=== PATIENT | male | born 1950 | race Caucasian/White ===

== ENCOUNTER 2020-09-23 07:41 | Emergency (ER) | payer MEDICARE, SELFPAY ==
[2020-09-23] VITALS (20 sets, daily range): BP systolic 117–134; BP diastolic 69–82; PULSE 61–85; RESP 14–19; TEMP 36.3; O2SAT 98–100
--- NOTE | 2020-09-23 08:12 | ECG_ITS ---
Measurements Intervals [place] Rate: 63 P: 78 MD: 147 QRS: 85 QRSD: 127 T: 66 QT: 451 QTc: 463 Interpretive Statements SINUS RHYTHM POSSIBLE LEFT ATRIAL ENLARGEMENT INCOMPLETE RIGHT BUNDLE BRANCH BLOCK BASELINE ARTIFACT- II, III, AVR, AVF, V1, V3-V6 BORDERLINE ECG Electronically Signed On 09-23-2020 9:17:19 CDT by Hipolito Gan D.O.
[2020-09-23] MEDS: FAMOTIDINE 20 MG/2 ML VIAL IV PUSH (08:28)
[2020-09-23] MEDS: SODIUM CHLORIDE 0.9% IV 1,000 ML 150 ML IV CONT (08:28)
[2020-09-23] MEDS: ONDANSETRON INJ 4 MG/2 ML VIAL IV PUSH (08:28)
[2020-09-23 08:39] LABS: Hematocrit 39.1 % (42.0-52.0); Hemoglobin 13.6 g/dL (14.0-18.0); Immature Granulocyte Absolute 0.02 K/mm3 (0.00-0.031); Immature Granulocyte Percent A 0.3 % (0-0.5); Lymphocytes Absolute Auto 0.72 K/mm3 (0.9-3.2); Lymphocytes Percent Auto 9.8 % (18.3-44.2); Mean Corpuscular HGB Conc 34.8 g/dl (32-36); Mean Corpuscular Hemoglobin 32.2 pg (26-34); Mean Corpuscular Volume 92.7 fl (80-100); Mean Platelet Volume 11.9 fl (7.4-10.4); Monocytes Absolute Auto 0.3 K/mm3 (0.1-0.6); Monocytes Percent Auto 4.6 % (2.6-8.5); Neutrophils Absolute Auto 6.3 K/mm3 (1.3-6.7); Neutrophils Percent Auto 85.3 % (45.5-73.1); Platelet Count Result 130 k/mm3 (150-375); Red Blood Count 4.22 M/mm3 (4.6-6.20); Red Cell Distribution Width 13.2 % (11.5-14.5); White Blood Count 7.4 K/mm3 (4.5-10.0)
[2020-09-23 08:42] LABS: Alanine Aminotransferase 23 U/L (4-50); Albumin Level 4.5 g/dL (3.5-5.1); Alkaline Phosphatase 63 U/L (38-126); Anion Gap 11 mmol/L (8-16); Aspartate Amino Transferase 32 U/L (17-59); Bilirubin,Total 1.3 mg/dL (0.2-1.3); Blood Urea Nitrogen 11 mg/dL (9-20); Calcium 9.7 mg/dL (8.4-10.2); Carbon Dioxide 22 mmol/L (22-30); Chloride 99 mmol/L (98-107); Estimated CRCL calculation 75 ml/min; Estimated Glomerular Filt Rate > 60; Glucose 108 mg/dL (75-110); Lipase 45 U/L (23-300); Potassium 3.7 mmol/L (3.4-5.0); Sodium 132 mmol/L (137-145)
[2020-09-23 09:34] LABS: Add Urine Microscopic? YES; Appearance Urine Clear (Clear); Bilirubin Urine Negative (Negative); Blood Urine Negative (Negative); Color Urine Yellow (Yellow); Glucose Urine UA Negative (Negative); Ketones Urine 2+ mg/dL (Negative); Leukocyte Esterase Ur Negative LEU/UL (Negative); Mucus Urine Heavy /lpf; Nitrate Urine Negative (Negative); Protein Urine 1+ mg/dL (Negative); RBC Urine 0-2 /hpf (0-2); Specific Grav Ur 1.024 (1.001-1.035); Urobilinogen Urine Negative mg/dL (<2.0); WBC Urine 0-3 /hpf
--- NOTE | 2020-09-23 10:20 | ED.GENADULT ---
HPI - General Adult General Chief complaint: Nausea/Vomiting/Diarrhea Stated complaint: nausea, reflux Time Seen by Provider: 09/23/20 07:49 Source: patient Mode of arrival: ambulatory Limitations: no limitations History of Present Illness HPI narrative: 70-year-old with no major medical problems here with complaints of nausea, heartburn for last few days. Patient states that he had apple cider vinegar with no relief. He states that every time he eats something he feels extremely nauseated and he feels some discomfort in the upper abdomen. No history of fever or chills. Denies any diarrhea. He has a normal bowel movement yesterday. Onset (ago): day(s) (2) Location: abdomen Radiation: non-radiation Severity: mild Quality: aching Pain Consistency: constant and intermittent Relieving factors: eating Exacerbating factors: none Associated symptoms: denies other symptoms Related Data Allergies Allergy/AdvReac Type Severity Reaction Status Date / Time No Known Allergies Allergy Uncoded 01/07/19 09:19 Review of Systems Review of Systems: All systems reviewed & are unremarkable except as noted in HPI and below Constitutional: Constitutional: Reports no additional constitutional complaints Eyes: Eyes: Reports no additional eye complaints ENT: Reports system reviewed and no additional complaints, except as documented Cardiovascular: Cardiovascular: Reports no additional cardiovascular complaints Respiratory: Respiratory: Reports no additional respiratory complaints Gastrointestinal: Gastrointestinal: Reports as per HPI Musculoskeletal: Musculoskeletal: Reports no additional musculoskeletal complaints Integumentary/Breasts: Skin/Breast: Reports system reviewed and no additional complaints, except as docu Exam Narrative: Exam Narrative: GENERAL: Well-appearing, thin and in no acute distress. HEAD: Normocephalic, atraumatic. EYES: PERRLA and EOMI. NECK: Supple. CHEST: Clear to auscultation. No respiratory distress. HEART: Regular rate and rhythm. No murmur heard. Normal peripheral pulses. ABDOMEN: Soft, nontender, nondistended, normal active bowel sounds. EXTREMITIES: Normal range of motion. No edema. SKIN: Warm, dry, no rash. NEURO: No focal deficits. Alert and oriented x3. PSYCH: Normal mood and affect. Course Course Emergency Course: Patient stated he is feeling much better after Zofran and Pepcid. I have reviewed his lab work with the patient. Advised him to start taking omeprazole and Zofran as needed. Also recommended him to follow-up with his primary doctor if GI for further work-up. He does feel comfortable going home. Vital Signs Vital signs: Vital Signs Pulse Rate 76 09/23/20 08:06 Respiratory Rate 17 09/23/20 08:06 Blood Pressure 124/70 09/23/20 08:06 Pulse Oximetry 100 09/23/20 08:06 Temperature 36.3 C L 09/23/20 08:08 Pulse Rate 63 09/23/20 09:27 Respiratory Rate 14 09/23/20 09:27 Blood Pressure 121/71 09/23/20 09:27 Pulse Oximetry 98 09/23/20 09:27 Medical Decision Making Vital Signs Vital Signs: Vital Signs Pulse Rate 76 09/23/20 08:06 Respiratory Rate 17 09/23/20 08:06 Blood Pressure 124/70 09/23/20 08:06 Pulse Oximetry 100 09/23/20 08:06 Temperature 36.3 C L 09/23/20 08:08 Pulse Rate 63 09/23/20 09:27 Respiratory Rate 14 09/23/20 09:27 Blood Pressure 121/71 09/23/20 09:27 Pulse Oximetry 98 09/23/20 09:27 Lab Data Result diagrams: 09/23/20 08:24 09/23/20 08:24 Labs: Lab Results 09/23/20 09/23/20 09/23/20 Range/Units 08:24 08:24 09:08 WBC 7.4 (4.5-10.0) K/mm3 RBC 4.22 L (4.6-6.20) M/mm3 Hgb 13.6 L (14.0-18.0) g/dL Hct 39.1 L (42.0-52.0) % MCV 92.7 (80-100) fl MCH 32.2 (26-34) pg MCHC 34.8 (32-36) g/dl RDW 13.2 (11.5-14.5) % Plt Count 130 L (150-375) k/mm3 MPV 11.9 H (7.4-10.4) fl Immature Gran % (Auto) 0.3 (0-0.5) % Imtiaz
== END 2020-09-23 10:39 | disposition home or self-care (01) ==
PROVIDERS: Emergency Provider Family Medicine; PCP Emergency Medicine
DX: K21.9 Gastro-esophageal reflux disease without esophagitis (principal); I45.10 Unspecified right bundle-branch block
CPT/HCPCS: 36415; 80053; 81001; 83690; 85025; 93005; 96361; 96374; 96375; 99284; J2405; J7030

== ENCOUNTER 2021-06-19 06:36 | Outpatient (CLI) | payer MEDICARE, SELFPAY ==
--- NOTE | ~2021-06-19 | CT_ITS ---
EXAMINATION: CT abdomen pelvis w con DATE: 06/19/2021 07:14 INDICATION: Prostate cancer. TECHNIQUE: Computed tomography (CT) of the abdomen and pelvis was performed with 100 mL Omnipaque 350 intravenous contrast. Automated exposure control and iterative reconstruction technique were employe d. The dose-length product was 248.42 mGy-cm. COMPARISON: None. FINDINGS: The visualized portions of the lung bases demonstrate mild atelectasis. No pleural effusion . The heart size is normal. There are coronary artery calcifications. No pericardial effusion. The li rigoberto, gallbladder, spleen, pancreas, adrenal glands, and kidneys are normal. The prostate is moderatel y enlarged. There are no dilated loops of bowel. The appendix is normal. There are no pathologically enlarged lymph nodes. There is no free intraperitoneal fluid. There is a benign bone island in right femoral head. There are benign bone islands in the iliac bones. There is mild lumbar spondylosis. IMPRESSION: 1. No evidence of metastatic disease. Reviewed, dictated and finalized at location A.
--- NOTE | ~2021-06-19 | XR_ITS ---
EXAMINATION: XR chest 2V 06/19/2021 07:22 INDICATION: Prostate cancer PROCEDURE: 2 view chest COMPARISON: No prior studies for comparison. FINDINGS: The lungs are clear. The lungs are hyperinflated which is consistent with, but not diagnost ic of chronic obstructive pulmonary disease. The cardiomediastinal silhouette is within normal limits . There are no pleural effusions. There is no pneumothorax suspected. IMPRESSION: 1: NO ACUTE CARDIOPULMONARY DISEASE. Reviewed, dictated and finalized at location B.
[2021-06-19 07:08] LABS: Estimated Glomerular Filt Rate 59
== END 2021-06-19 06:37 | disposition home or self-care (01) ==
LOC: ANHIMG 06:41
PROVIDERS: PCP Family Medicine; Visit Provider Nurse Practitioner Adult Health
DX: C61 Malignant neoplasm of prostate (principal); M47.816 Spondylosis without myelopathy or radiculopathy, lumbar region
CPT/HCPCS: 71046; 74177; Q9967

== ENCOUNTER 2021-06-22 07:26 | Outpatient (CLI) | payer MEDICARE, SELFPAY ==
--- NOTE | ~2021-06-22 | NM_ITS ---
EXAMINATION: NM bone scan whole body DATE: 06/22/2021 12:21 INDICATION: Prostate cancer TECHNIQUE: 25 mCi Tc-99m HDP was administered intravenously. Delayed whole-body scintigrams were obt ained. COMPARISON: CT abdomen and pelvis and chest radiograph dated 06/19/2021 FINDINGS: Linear pattern of foci of increased uptake at the anterior left 7th, 9th and 10th ribs with old rib f ractures evident at these locations on the prior CT. There is an additional focus of moderate increas ed uptake in the region of the lateral right second rib which is without evident correlate on the vanita st radiographs. Mild likely degenerative joint centered uptake at the bilateral acromioclavicular melani nts number at the radial aspect of the carpi, right greater than left, at the bilateral patellae and at the right midfoot. IMPRESSION: 1. Indeterminate focus of increased uptake at the lateral right second rib which is without correlate on the prior radiographs although assessment is more limited than with CT. This is a less typical si te for rib fracture and would consider CT of the right shoulder for comparison. Reviewed, dictated and finalized at location A. IMPRESSION: 1. Indeterminate focus of increased uptake at the lateral right second rib whic h is without correlate on the prior radiographs although assessment is more villasenor ited than with CT. This is a less typical site for rib fracture and would consi kelly CT of the right shoulder for comparison.
== END 2021-06-22 07:27 | disposition home or self-care (01) ==
LOC: ANHIMG 07:29
PROVIDERS: PCP Family Medicine; Visit Provider Nurse Practitioner Adult Health
DX: C61 Malignant neoplasm of prostate (principal)
CPT/HCPCS: 78306; A9561

== ENCOUNTER 2021-12-25 09:16 | Outpatient (CLI) | payer MEDICARE, SELFPAY ==
[2021-12-25 19:25] LABS: Basophils Absolute Auto 0.1 K/mm3 (0.0-0.1); Eosinophils Absolute Auto 0.1 K/mm3 (0-0.3); Eosinophils Percent Auto 1.2 % (0-4.4); Hematocrit 43.7 % (42.0-52.0); Hemoglobin 14.4 g/dL (14.0-18.0); Immature Granulocyte Absolute 0.01 K/mm3 (0.00-0.031); Immature Granulocyte Percent A 0.2 % (0-0.5); Lymphocytes Absolute Auto 1.14 K/mm3 (0.9-3.2); Lymphocytes Percent Auto 23.4 % (18.3-44.2); Mean Corpuscular Hemoglobin 32.5 pg (26-34); Mean Corpuscular Volume 98.6 fl (80-100); Mean Platelet Volume 12.7 fl (7.4-10.4); Monocytes Absolute Auto 0.4 K/mm3 (0.1-0.6); Monocytes Percent Auto 7.4 % (2.6-8.5); Neutrophils Absolute Auto 3.3 K/mm3 (1.3-6.7); Neutrophils Percent Auto 66.8 % (45.5-73.1); Platelet Count Result 136 k/mm3 (150-375); Red Blood Count 4.43 M/mm3 (4.6-6.20); Red Cell Distribution Width 13.8 % (11.5-14.5); White Blood Count 4.9 K/mm3 (4.5-10.0)
[2021-12-25 19:54] LABS: Alanine Aminotransferase 25 U/L (6-50); Albumin Level 4.6 g/dL (3.5-5.1); Alkaline Phosphatase 78 U/L (38-126); Anion Gap 10 mmol/L (8-16); Aspartate Amino Transferase 51 U/L (17-59); Blood Urea Nitrogen 14 mg/dL (9-20); Calcium 9.4 mg/dL (8.4-10.2); Carbon Dioxide 27 mmol/L (22-30); Chloride 105 mmol/L (98-107); Cholesterol 177 mg/dL (0-200); Estimated Glomerular Filt Rate > 60; Glucose 95 mg/dL (65-110); HDL Direct 63 mg/dL; Potassium 4.2 mmol/L (3.4-5.0); Sodium 142 mmol/L (137-145); Triglycerides 72 mg/dL (<150)
[2021-12-25 20:09] LABS: Vitamin D 25 Hydroxy 47.4 ng/mL
[2021-12-25 20:10] LABS: LDL Cholesterol Direct 89 mg/dL
== END 2021-12-25 09:17 | disposition home or self-care (01) ==
LOC: ANHGOSHLAB 09:23
PROVIDERS: PCP Family Medicine; Visit Provider Family Medicine
DX: C61 Malignant neoplasm of prostate (principal); Z79.899 Other long term (current) drug therapy; E78.5 Hyperlipidemia, unspecified; Z13.29 Encounter for screening for other suspected endocrine disorder; R12 Heartburn; E55.9 Vitamin D deficiency, unspecified; E53.8 Deficiency of other specified B group vitamins
CPT/HCPCS: 36415; 80053; 80061; 82306; 82607; 84443; 85025

== ENCOUNTER 2022-12-30 09:06 | Outpatient (CLI) | payer MEDICARE, SELFPAY ==
[2022-12-30 18:32] LABS: Alanine Aminotransferase 29 U/L (6-50); Albumin Level 4.5 g/dL (3.5-5.1); Alkaline Phosphatase 78 U/L (38-126); Anion Gap 4 mmol/L (8-16); Aspartate Amino Transferase 36 U/L (17-59); Bilirubin,Total 0.8 mg/dL (0.2-1.3); Blood Urea Nitrogen 16 mg/dL (9-20); Calcium 9.3 mg/dL (8.4-10.2); Carbon Dioxide 30 mmol/L (22-30); Chloride 106 mmol/L (98-107); Cholesterol 182 mg/dL (0-200); Estimated Glomerular Filt Rate 59; Glucose 102 mg/dL (65-110); HDL Direct 68 mg/dL; Potassium 4.4 mmol/L (3.4-5.0); Sodium 140 mmol/L (137-145); Triglycerides 57 mg/dL (<150)
[2022-12-30 18:43] LABS: LDL Cholesterol Direct 88 mg/dL
[2022-12-30 19:38] LABS: Vitamin D 25 Hydroxy 54.6 ng/mL
[2022-12-30 19:55] LABS: Basophils Absolute Auto 0.1 K/mm3 (0.0-0.1); Eosinophils Absolute Auto 0.1 K/mm3 (0-0.3); Eosinophils Percent Auto 1.4 % (0-4.4); Hematocrit 42.9 % (42.0-52.0); Hemoglobin 14.4 g/dL (14.0-18.0); Immature Granulocyte Absolute 0.01 K/mm3 (0.00-0.031); Immature Granulocyte Percent A 0.2 % (0-0.5); Immature Platelet Fraction Pct 10.9 % (0.9-11.2); Lymphocytes Absolute Auto 1.31 K/mm3 (0.9-3.2); Lymphocytes Percent Auto 26.8 % (18.3-44.2); Mean Corpuscular HGB Conc 33.6 g/dl (32-36); Mean Corpuscular Hemoglobin 32.9 pg (26-34); Mean Corpuscular Volume 97.9 fl (80-100); Mean Platelet Volume 13.6 fl (7.4-10.4); Monocytes Absolute Auto 0.4 K/mm3 (0.1-0.6); Monocytes Percent Auto 8.4 % (2.6-8.5); Neutrophils Percent Auto 62.2 % (45.5-73.1); Platelet Count Result 118 k/mm3 (150-375); Red Blood Count 4.38 M/mm3 (4.6-6.20); Red Cell Distribution Width 13.3 % (11.5-14.5); White Blood Count 4.9 K/mm3 (4.5-10.0)
== END 2022-12-30 09:07 | disposition home or self-care (01) ==
PROVIDERS: PCP Family Medicine; Visit Provider Family Medicine
DX: E78.5 Hyperlipidemia, unspecified (principal); E55.9 Vitamin D deficiency, unspecified; D69.6 Thrombocytopenia, unspecified; Z00.00 Encounter for general adult medical examination without abnormal findings; Z79.899 Other long term (current) drug therapy; C61 Malignant neoplasm of prostate; E53.8 Deficiency of other specified B group vitamins; Z13.29 Encounter for screening for other suspected endocrine disorder
CPT/HCPCS: 36415; 80053; 80061; 82306; 82607; 84443; 85025; 85055

== ENCOUNTER 2023-03-11 08:08 | Outpatient (CLI) | payer MEDICARE, SELFPAY ==
[2023-03-11 19:48] LABS: Appearance Urine Clear (Clear); Bilirubin Urine Negative (Negative); Blood Urine Negative (Negative); Color Urine Yellow (Yellow); Glucose Urine UA Negative (Negative); Ketones Urine Negative (Negative); Leukocyte Esterase Ur Negative LEU/UL (Negative); Nitrate Urine Negative (Negative); Protein Urine Negative (Negative); Specific Grav Ur 1.004 (1.001-1.035); Urobilinogen Urine 0.2 mg/dL (<2.0)
[2023-03-11 19:53] LABS: Add Urine Microscopic? NO
== END 2023-03-11 08:09 | disposition home or self-care (01) ==
PROVIDERS: PCP Family Medicine; Visit Provider Family Medicine
DX: R30.0 Dysuria (principal)
CPT/HCPCS: 81003

== ENCOUNTER 2023-12-31 07:58 | Outpatient (CLI) | payer MEDICARE, SELFPAY ==
[2023-12-31 14:13] LABS: Basophils Percent Auto 0.7 % (0.2-1.2); Eosinophils Absolute Auto 0.1 K/mm3 (0-0.3); Eosinophils Percent Auto 1.8 % (0-4.4); Hematocrit 40.4 % (42.0-52.0); Hemoglobin 13.5 g/dL (14.0-18.0); Immature Granulocyte Absolute 0.01 K/mm3 (0.00-0.031); Immature Granulocyte Percent A 0.2 % (0-0.5); Lymphocytes Absolute Auto 1.41 K/mm3 (0.9-3.2); Lymphocytes Percent Auto 31.7 % (18.3-44.2); Mean Corpuscular HGB Conc 33.4 g/dl (32-36); Mean Corpuscular Hemoglobin 33.4 pg (26-34); Mean Platelet Volume 12.3 fl (7.4-10.4); Monocytes Absolute Auto 0.4 K/mm3 (0.1-0.6); Monocytes Percent Auto 8.8 % (2.6-8.5); Neutrophils Absolute Auto 2.5 K/mm3 (1.3-6.7); Neutrophils Percent Auto 56.8 % (45.5-73.1); Platelet Count Result 122 k/mm3 (150-375); Red Blood Count 4.04 M/mm3 (4.6-6.20); Red Cell Distribution Width 14.2 % (11.5-14.5); White Blood Count 4.5 K/mm3 (4.5-10.0)
[2023-12-31 14:26] LABS: Alanine Aminotransferase 32 U/L (6-50); Albumin Level 4.4 g/dL (3.5-5.1); Alkaline Phosphatase 72 U/L (38-126); Anion Gap 7 mmol/L (4-12); Aspartate Amino Transferase 64 U/L (17-59); Bilirubin,Total 1.2 mg/dL (0.2-1.3); Blood Urea Nitrogen 16 mg/dL (9-20); Calcium 9.3 mg/dL (8.4-10.2); Carbon Dioxide 29 mmol/L (22-30); Chloride 104 mmol/L (98-107); Cholesterol 162 mg/dL (0-200); Estimated Glomerular Filt Rate > 60; Glucose 82 mg/dL (65-110); HDL Direct 62 mg/dL; Potassium 3.9 mmol/L (3.4-5.0); Sodium 140 mmol/L (137-145); Triglycerides 52 mg/dL (<150)
[2023-12-31 14:38] LABS: LDL Cholesterol Direct 72 mg/dL
[2023-12-31 14:57] LABS: Vitamin D 25 Hydroxy 42.7 ng/mL
[2023-12-31 15:20] LABS: Hemoglobin A1C 5.4 % (<5.7)
== END 2023-12-31 07:59 | disposition home or self-care (01) ==
PROVIDERS: PCP Family Medicine; Visit Provider Family Medicine
DX: E55.9 Vitamin D deficiency, unspecified (principal); M54.50 Low back pain, unspecified; Z13.29 Encounter for screening for other suspected endocrine disorder; D69.6 Thrombocytopenia, unspecified; R73.9 Hyperglycemia, unspecified; E53.8 Deficiency of other specified B group vitamins; E78.5 Hyperlipidemia, unspecified
CPT/HCPCS: 36415; 80053; 80061; 82306; 82607; 83036; 84443; 85025

== ENCOUNTER 2024-02-11 08:00 | Outpatient (CLI) | payer MEDICARE, SELFPAY ==
[2024-02-11 21:33] LABS: Alanine Aminotransferase 32 U/L (6-50); Albumin Level 4.5 g/dL (3.5-5.1); Alkaline Phosphatase 76 U/L (38-126); Anion Gap 11 mmol/L (4-12); Aspartate Amino Transferase 37 U/L (17-59); Bilirubin,Total 0.9 mg/dL (0.2-1.3); Blood Urea Nitrogen 15 mg/dL (9-20); Calcium 9.7 mg/dL (8.4-10.2); Carbon Dioxide 26 mmol/L (22-30); Chloride 103 mmol/L (98-107); Estimated Glomerular Filt Rate 59; Glucose 95 mg/dL (65-110); Potassium 4.1 mmol/L (3.4-5.0); Sodium 140 mmol/L (137-145)
== END 2024-02-11 08:01 | disposition home or self-care (01) ==
PROVIDERS: PCP Family Medicine; Visit Provider Family Medicine
DX: R74.01 Elevation of levels of liver transaminase levels (principal)
CPT/HCPCS: 36415; 80053